=== PATIENT | female | born 1995 | race Caucasian/White ===

== ENCOUNTER 2021-01-30 12:30 | Outpatient (CLI) | payer OTHER | END 2021-01-30 12:31 | disposition critical access hospital (66) | LOC: EMS 12:30 | DX: R55 Syncope and collapse (principal) | CPT/HCPCS: A0425; A0427 ==

== ENCOUNTER 2021-01-30 13:00 | Emergency (ER) | payer OTHER ==
[2021-01-30 13:32] LABS: BASOPHILS % (AUTO) 0.4 %; EOSINOPHILS # (AUTO) 0.1 10^3/uL (0.0-0.7); EOSINOPHILS % (AUTO) 1.6 %; HCT - HEMATOCRIT 41.6 % (37.0-47.0); HGB - HEMOGLOBIN 13.9 g/dL (12.0-16.0); LYMPHOCYTES # (AUTO) 1.9 10^3/uL (1.5-3.5); LYMPHOCYTES % (AUTO) 25.2 %; MEAN CORPUSCULAR HGB CONC 33.4 g/dL (32.0-36.0); MEAN CORPUSCULAR VOLUME 83.9 fL (81.0-99.0); MONOCYTES # (AUTO) 0.5 10^3/uL (0.0-1.0); MONOCYTES % (AUTO) 6.7 %; NEUTROPHILS % (AUTO) 65.8 %; PLT - PLATELET COUNT 310 10^3/uL (130-450); RED BLOOD COUNT 4.96 10^6/uL (4.20-5.40); RED CELL DISTRIBUTION WIDTH 12.6 % (12.0-15.0); WHITE BLOOD COUNT 7.6 x10^3/uL (4.8-10.8)
--- NOTE | 2021-01-30 13:35 | ED Physician Documentation ---
History of Present Illness - Stated complaint Stated Complaint: SZ/SYNCOPE - Chief complaint Chief Complaint: General - Additonal information Additional information: 25-year-old female presents emergency department for evaluation of a syncopal episode as well as possible seizure activity. She was at the [facility] where she had a colposcopy. She also received an injection of Depo for her control. She began to feel suddenly faint and knew that she was going to pass out. She did syncopized and was noted to have some generalized tonic-clonic movements as well as loss of bladder function. Patient reports that she was likely with loss of consciousness for about 30 seconds before she aroused. At this time she is back to her normal baseline mentation and has no acute complaints. She reports many syncopal episodes since the age of 11. They can follow times of stress anxiety or previous procedures. She has been worked up especially in her adolescence for this and no acute findings were found. She was told to increase her sodium intake as well as her water intake. Patient was having a colposcopy secondary to abnormal Pap smears recently. Review of Systems Constitutional: denies: Fever Eyes: reports: Reviewed and negative Ears: reports: Reviewed and negative Nose: reports: Reviewed and negative Throat: reports: Reviewed and negative Cardiac: reports: Reviewed and negative Respiratory: reports: Reviewed and negative GI: reports: Reviewed and negative : reports: Other (Loss of bladder). denies: Dysuria, Frequency, Hesitancy, Unable to Void Skin: reports: Reviewed and negative Musculoskeletal: reports: Reviewed and negative Neurologic: reports: Syncope, Seizure, LOC. denies: Generalized weakness, Focal weakness, Numbness Psychiatric: reports: Depressed, Reviewed and negative PD PAST MEDICAL HISTORY - Past Medical History Past Medical History: Yes Cardiovascular: None Respiratory: None Neuro: Seizure disorder Endocrine/Autoimmune: None GI: None SKILLS INSTRUCTOR: None : None HEENT: None Psych: None Musculoskeletal: None Derm: None - Past Surgical History Past Surgical History: No - Allergies Allergies/Adverse Reactions: Allergies Allergy/AdvReac Type Severity Reaction Status Date / Time No Known Drug Allergies Allergy Verified 01/30/21 13:15 - Social History Does the pt smoke?: No Smoking Status: Never smoker Does the pt drink ETOH?: No Does the pt have substance abuse?: No - Immunizations Immunizations are current?: Yes - POLST Patient has POLST: No PD ED PE EXPANDED - General General: Alert, No acute distress, Well developed/nourished - HEENT HEENT: Atraumatic. No: Head injury, PERRL - Neck Neck: Supple w/out meningeal sx. No: Adenopathy - Cardiac Cardiac: Regular Rate, Radial strong equal, Femoral strong equal, Pedal strong equal, Cap refill < 2 sec. No: Murmur Present - Respiratory Respiratory: Clear to ausultation kam. No: Distress, Labored - Abdomen Abdomen: Normal Bowel sounds - Derm Derm: Normal color, Warm and dry. No: Rash - Extremities Extremities: Normal. No: Deformity, Tenderness - Neuro Neuro: Alert and Oriented X 3, CNII-XII intact, Normal gait, Normal finger nose, Normal speech - GCS Eye Opening: Spontaneous Motor: Obeys Commands Verbal: Oriented Total: 15 Results - Vitals Vitals: Vital Signs - 24 hr 01/30/21 13:05 Temperature 37.3 C Heart Rate 79 Respiratory 16 Rate Blood Pressure 111/75 O2 Saturation 96 Oxygen O2 Source Room air - EKG (time done) 1317 Rate: Rate (enter#) (67) Rhythm: NSR [place]: Normal Intervals: Normal LA QRS: Normal Ischemia: Normal ST segments, Non specific changes (Generalized T wave flattening in the anterior leads.) Compare to prior EKG: Old EKG unavailable Computer interpretation: Agree with computer - Labs Labs: Laboratory Tests 01/30/21 01/30/21 13:27 13:27 WBC 7.6 RBC 4.96 Hgb 13.9 Hct 41.6 MCV 83.9 MCH 28.0 MCHC 33.4 RDW 12.6 Plt Count 310 MPV 9.0 Neut # (Auto) 5.0 Lymph # (Auto) 1.9 Ector # (Auto) 0.5 Eos # (Auto) 0.1 Baso # (Auto) 0.0 Absolute Nucleated RBC 0.00 Nucleated RBC % 0.0 Sodium 139 Potassium 3.5 Chloride 106 Carbon Dioxide 23 Anion Gap 10.0 BUN 12 Creatinine 0.8 Estimated GFR (MDRD) 88 L Glucose 115 H Calcium 9.7 Total Bilirubin 0.9 AST 15 ALT < 10 L Alkaline Phosphatase 73 Total Protein 7.5 Albumin 4.6 Globulin 2.9 Albumin/Globulin Ratio 1.6 Lipase 38
[2021-01-30 13:51] LABS: ALBUMIN 4.6 g/dL (3.2-5.5); ALBUMIN/GLOBULIN RATIO 1.6 (1.0-2.2); ALKALINE PHOSPHATASE 73 IU/L (42-121); ALT ALANINE AMINOTRANSFERASE < 10 IU/L (10-60); AST ASPARTATE AMINOTRANSFERASE 15 IU/L (10-42); BILIRUBIN,TOTAL 0.9 mg/dL (0.2-1.0); BUN - BLOOD UREA NITROGEN 12 mg/dL (6-20); CALCIUM 9.7 mg/dL (8.5-10.3); CARBON DIOXIDE - CO2 23 mmol/L (21-32); CHLORIDE 106 mmol/L (101-111); CREATININE 0.8 mg/dL (0.4-1.0); GFR - MDRD 88 (>89); GLUCOSE 115 mg/dL (70-100); LIPASE 38 U/L (22-51); POTASSIUM 3.5 mmol/L (3.5-5.0); SODIUM 139 mmol/L (135-145); TOTAL PROTEIN 7.5 g/dL (6.7-8.2)
--- NOTE | 2021-01-30 14:14 | XRAY Report ---
PROCEDURE: Chest 1 View X-Ray INDICATIONS: ? syncope/seizure TECHNIQUE: One view of the chest was acquired. COMPARISON: None FINDINGS: Surgical changes and devices: None. Lungs and pleura: No pleural effusions or pneumothorax. Lungs are clear. Mediastinum: Mediastinal contours appear normal. Heart size is normal. Bones and chest wall: No suspicious bony lesions. Overlying soft tissues appear unremarkable. IMPRESSION: No acute pulmonary process. Reviewed by: Cherie Frausto MD on 01/30/2021 2:13 PM [facility] Approved by: Cherie Frausto MD on 01/30/2021 2:13 PM [facility] Station ID: [id number]
[2021-01-30 14:28] VITALS: BP 103/66
== END 2021-01-30 15:42 | disposition home or self-care (01) ==
LOC: ED 13:00
DX: R55 Syncope and collapse (principal)
CPT/HCPCS: 36415; 80053; 83690; 84484; 85025; 93005; 99284